=== PATIENT | female | born 1990 | race Caucasian/White ===

== ENCOUNTER → 2018-03-30 | Outpatient (CLI) | payer BC ==
[~2018-03-30] MED LIST: CODE-54 PO; DCS100C PO; FLUT16SP22 NS; IBUP-1773 PO; IRON; NAPR-243 PO; ORTHO TRICYCLINE PO; OX05NA15; OXYC-12 PO; PREN-93 PO; TRM50T PO; [UNRECOGNIZED DRUG - CODE] PO
--- NOTE | 2018-03-30 14:24 | Diagnostic Imaging Report ---
INDICATION: Polycystic ovarian syndrome. TECHNIQUE: Multiple real-time grayscale images were obtained of the pelvis in various projections endovaginally. Transabdominal imaging was also performed. FINDINGS: The uterus measures 7.6 x 4.5 x 3.8 cm. No myometrial mass is detected. The endometrium is 6 cm in thickness. The right ovary measures 3.5 x 2.1 x 2.9 cm and the left ovary measures 3.8 x 2.5 x 2.5 cm. There is blood flow to both ovaries. Small follicles are identified on the left ovary. No adnexal mass or free fluid is seen. There are cervical nabothian cysts present. IMPRESSION: Unremarkable transabdominal and transvaginal pelvic ultrasound. Dictated by: Dictated on workstation # [id number]
== END ==
LOC: RAD 12:40
PROVIDERS: ATTEND Obstetrics & Gynecology
DX: E28.2 Polycystic ovarian syndrome (principal)
CPT/HCPCS: 76830; 76856